=== PATIENT | male | born 1950 | race Caucasian/White ===

== ENCOUNTER → 2018-03-30 06:59 | Outpatient (CLI) | payer OTHER, MEDICARE, SELFPAY ==
[2018-03-30 07:58] LABS: Cholesterol 145 mg/dL (140-199); HDL Cholesterol 41 mg/dL (40-60); LDL Cholesterol Calculated 56 mg/dL (<100); Triglycerides 239 mg/dL (35-150)
== END ==
PROVIDERS: PCP Internal Medicine; Visit Provider Internal Medicine
DX: E78.5 Hyperlipidemia, unspecified (principal)
CPT/HCPCS: 36415; 80061

== ENCOUNTER 2019-02-04 00:24 | Emergency (ER) | payer OTHER, MEDICARE, SELFPAY ==
[2019-02-04 00:30] VITALS: BP 149/82; PULSE 66; RESP 13; O2SAT 99
--- NOTE | 2019-02-04 00:32 | DI.RAD.S_ITS ---
PROCEDURE: XR CHEST 1V INDICATIONS: Chest pain TECHNIQUE: One view of the chest was acquired. COMPARISON: None. FINDINGS: Surgical changes and devices: None. Lungs and pleura: Lungs are clear. No pleural effusions or pneumothorax. Mediastinum: Mediastinal contours appear normal. Heart size is normal. Bones and chest wall: No suspicious bony lesions. Overlying soft tissues appear unremarkable. IMPRESSION: No acute cardiopulmonary disease process. Dictated by: Mari Chou MD, PhD on 02/04/2019 at 8:58 Approved by: Mari Chou MD, PhD on 02/04/2019 at 8:58
--- NOTE | 2019-02-04 00:32 | ED.GENADULT ---
HPI - General Adult General Chief complaint: Chest Pain Stated complaint: CHEST AND JAW PAIN, DIFFICULTY BREATHINHG Time Seen by Provider: 02/04/19 00:31 Source: patient Mode of arrival: ambulatory Limitations: no limitations History of Present Illness HPI narrative: Patient is a 68-year-old male here for evaluation approximately 2 hours of what initially started off as a shortness of breath and then progressed to a left-sided jaw pain and then to chest discomfort. He states that he has had similar pain in the past but this was many years ago. He stated that he has had ?gas? in the past and this felt similar to this. He took some Maalox at home which was not helping his symptoms however he states that on the ride here to the emergency department he was burping quite a bit which seem to improve his symptoms. At the time of my evaluation patient reported that his symptoms had almost completely resolved. He did take aspirin prior to arrival here in the emergency department. States that his symptoms did not get better worse with movement or palpation Related Data Home Medications Medication Instructions Recorded Confirmed aspirin 81 mg PO QDAY #0 08/07/17 multivitamin [Multiple Vitamins] 1 tab PO QDAY #0 08/07/17 ascorbic acid (vitamin C) #0 10/11/17 Previous Rx's Medication Instructions Recorded albuterol sulfate [Ventolin HFA] 2 puff INH QID #1 ea 10/11/17 azithromycin [Zithromax] 250 - 500 mg PO QDAY #6 tab 10/11/17 Allergies Allergy/AdvReac Type Severity Reaction Status Date / Time amoxicillin [AMOXICILLIN] Allergy Unknown Verified 02/04/19 00:35 Review of Systems Constitutional Denies fever(s) Cardiovascular Reports chest pain, Denies rapid heart rate, Denies pedal edema, Denies edema, Denies palpitations and Reports dyspnea Respiratory Denies cough and Reports dyspnea Gastrointestinal Gastrointestinal: Denies belching, Denies nausea and Denies vomiting Musculoskeletal Denies myalgias and Denies arthralgias Integumentary/Breasts Denies rash Endocrine Denies palpitations Hematologic/Lymphatic Denies easy bleeding and Denies easy bruising [facility] Medical History Patient denies medical problems (Acute) Social History Smoking Status: Former smoker Social History Smoking Status: Former smoker Exam Initial Vital Signs Initial Vital Signs: Vital Signs Pulse Rate 66 02/04/19 00:30 Respiratory Rate 13 02/04/19 00:30 Blood Pressure 149/82 H 02/04/19 00:30 Pulse Oximetry 99 02/04/19 00:30 Const General: cooperative, healthy appearing, comfortable, well developed, well groomed and No acute distress Orientation: alert, awake and oriented x3 HENMT Head: normal to inspection and normocephalic Resp Effort & Inspection: normal respiratory effort Auscultation: clear to auscultation bilaterally Cardio Rate: regular rate Rhythm: regular rhythm Pulses: radial pulses present GI Inspection: non-distended Palpation: soft, No firm and No tender Skin Lesions: no lesions Rashes: no rashes Neuro General: alert, awake and oriented x3 Cognition: normal cognition Speech: speech normal Gait: normal gait Motor: muscle tone normal throughout Sensory Exam: no sensory deficits noted Extrem General: normal to inspection, capillary refill normal and No edema Psych Appearance: grossly normal and well kempt Scores GCS [place] coma scale eye opening: Spontaneous [place] coma scale verbal response: Orientated [place] coma scale motor response: Obey commands [place] coma scale total score: 15 HEART Score Heart Score history: Moderately Suspicious Heart Score EKG: Normal Heart Score Age: > or = 65 years old Heart Score risk factors: No known risk factors Heart Score troponin: < or = to normal limit Heart Score Total: 3 Course Orders Ordered: ED Orders 02/04/19 00:32 XR chest 1V Stat EKG-12 Lead Stat 02/04/19 00:40 Basic Metabolic Panel Stat Complete Blood Count AUTO DIFF Stat Partial Thromboplastin Time Stat Prothrombin Time INR Stat Troponin I Stat 02/04/19 02:43 Troponin I Stat Vital Signs - 8 hr 02/04/19 00:30 02/04/19 00:35 02/04/19 02:00 Temperature 98.2 F Pulse Rate 66 68 63 Respiratory Rate 13 18 18 Blood Pressure 162/90 H Blood Pressure [Left Arm] 149/82 H 131/85 Pulse Oximetry 99 95 97 02/04/19 02:30 02/04/19 03:00 Temperature Pulse Rate 63 62 Respiratory Rate 12 14 Blood Pressure Blood Pressure [Left Arm] 126/74 126/69 Pulse Oximetry 96 96 Medical Decision Making Lab Data Lab results reviewed: Yes I reviewed the patient's lab results. Result diagrams: 02/04/19 00:40 02/04/19 00:40 Lab Results 02/04/19 02/04/19 02/04/19 Range/Units 00:40 00:40 00:40 WBC 9.4 (4.5-11.0) X10^3/uL RBC 4.86 (4.5-5.9) X10^6/uL Hgb 14.3 (13.5-17.5) g/dL Hct 42.1 (41-53) % MCV 86.7 (80-100) fL MCH 29.4 (26-34) PG MCHC 33.9 (30-36) % RDW 13.3 (11.6-14.8) % Plt Count 257 (150-400) X10^3/uL Neut % (Auto) 71.1 (50-75) % Lymph % (Auto) 17.7 L (25-40) % [place] % (Auto) 7.9 (3-14) % Eos % (Auto) 3.0 (2-4) % Baso % (Auto) 0.3 (0-2) % Neut # (Auto) 6600 (0230-6401) /uL Lymph # (Auto) 1700 (9352-7722) /uL [place] # (Auto) 700 (0-900) /uL Eos # (Auto) 300 (0-450) /uL Baso # (Auto) 0 (0-100) /uL PT 12.9 H (10.1-12.7) SECONDS INR 1.1 (0.9-1.3) APTT 32 (26.4-36.2) SECONDS Sodium 140 (137-145) mmol/L Potassium 4.2 (3.4-5.1) mmol/L Chloride 103 (98-107) mmol/L Carbon Dioxide 30 (22-32) mmol/L BUN 23 H (9-20) mg/dL Creatinine 0.90 (0.66-1.25) mg/dL Estimated GFR > 60.0 (>60) mL/min BUN/Creatinine Ratio 25.6 H (6-22) Glucose 106 (80-110) mg/dL Calcium 9.1 (8.4-10.2) mg/dL Troponin I < 0.012 (0.01-0.034) ng/mL 02/04/19 Range/Units 02:43 WBC (4.5-11.0) X10^3/uL RBC (4.5-5.9) X10^6/uL Hgb (13.5-17.5) g/dL Hct (41-53) % MCV (80-100) fL MCH (26-34) PG MCHC (30-36) % RDW (11.6-14.8) % Plt Count (150-400) X10^3/uL Neut % (Auto) (50-75) % Lymph % (Auto) (25-40) % [place] % (Auto) (3-14) % Eos % (Auto) (2-4) % Baso % (Auto) (0-2) % Neut # (Auto) (4080-4434) /uL Lymph # (Auto) (9450-1201) /uL [place] # (Auto) (0-900) /uL Eos # (Auto) (0-450) /uL Baso # (Auto) (0-100) /uL PT (10.1-12.7) SECONDS INR (0.9-1.3) APTT (26.4-36.2) SECONDS Sodium (137-145) mmol/L Potassium (3.4-5.1) mmol/L Chloride (98-107) mmol/L Carbon Dioxide (22-32) mmol/L BUN (9-20) mg/dL Creatinine (0.66-1.25) mg/dL Estimated GFR (>60) mL/min BUN/Creatinine Ratio (6-22) Glucose (80-110) mg/dL Calcium (8.4-10.2) mg/dL Troponin I < 0.012 (0.01-0.034) ng/mL Imaging Data Chest x-ray: Attestation: I personally reviewed and interpreted this imaging study as follows: My impression: Normal size heart No focal consolidations Fairly large gastric bubble ECG Data Attestation: I personally reviewed and interpreted this ECG as follows: Prior ECG tracings: not available for review Interpretation: Sinus rhythm Ventricular rate is 67 Normal axis Normal QRS Normal QTC No ST T wave changes MDM Narrative Medical decision making narrative: Patient symptom-free since being here in the emergency department. He did take an aspirin prior to arrival. He has a heart score of 3. 2-troponins. Normal EKG. He did report resolution of his symptoms as he was burping on his way here to the emergency department. He does have fairly large gastric bubble on the chest x-ray which fits this presentation. Hold on further workup for now. Informed patient he did need to talk with his primary doctor about referral to have a stress test. He was given return precautions. He expressed understanding and agreement with plan Discharge Plan Departure Patient Disposition: Home Clinical Impression: Atypical chest pain Instructions: DI for Atypical Chest Pain Activity Restrictions/Additional Instructions: I do recommend that you contact your primary care doctor to discuss the indications for stress testing. Return to the emergency department for any new or worsening symptoms Prescriptions: No Action aspirin 81 MG tablet,chewable 81 mg PO QDAY Qty: 0 RF: 0 multivitamin [Multiple Vitamins] 1 EACH tablet 1 tab PO QDAY Qty: 0 RF: 0 ascorbic acid (vitamin C) 500 MG tablet Qty: 0 RF: 0 azithromycin [Zithromax] 250 MG tablet 250 - 500 mg PO QDAY Qty: 6 RF: 0 albuterol sulfate [Ventolin HFA] 90 MCG/PUFF HFA aerosol inhaler 2 puff INH QID Qty: 1 RF: 0 Referrals: Kenton Carson MD [Primary Care Provider] -
[2019-02-04 00:35] VITALS: BP 162/90; PULSE 68; RESP 18; TEMP 36.8; O2SAT 95; BMI 31.0
[2019-02-04 00:51] LABS: Add Manual Diff / Slide Review NO; Basophils Absolute Auto 0 /uL (0-100); Basophils Percent Auto 0.3 % (0-2); Eosinophils Absolute Auto 300 /uL (0-450); Hematocrit 42.1 % (41-53); Hemoglobin 14.3 g/dL (13.5-17.5); Lymphocytes Absolute Auto 1700 /uL (1100-4500); Lymphocytes Percent Auto 17.7 % (25-40); Mean Corpuscular HGB Conc 33.9 % (30-36); Mean Corpuscular Hemoglobin 29.4 PG (26-34); Mean Corpuscular Volume 86.7 fL (80-100); Monocytes Absolute Auto 700 /uL (0-900); Monocytes Percent Auto 7.9 % (3-14); Neutrophils Absolute Auto 6600 /uL (1500-7000); Neutrophils Percent Auto 71.1 % (50-75); Platelet Count 257 X10^3/uL (150-400); Red Blood Cell Count 4.86 X10^6/uL (4.5-5.9); Red Cell Distribution Width 13.3 % (11.6-14.8); White Blood Cell Count 9.4 X10^3/uL (4.5-11.0)
[2019-02-04 00:52] LABS: INR 1.1 (0.9-1.3); Prothrombin Time 12.9 SECONDS (10.1-12.7)
[2019-02-04 00:54] LABS: PTT Partial Thromboplastin Tim 32 SECONDS (26.4-36.2)
[2019-02-04 00:56] LABS: BUN Creatinine Ratio 25.6 (6-22); Blood Urea Nitrogen 23 mg/dL (9-20); Calcium 9.1 mg/dL (8.4-10.2); Carbon Dioxide 30 mmol/L (22-32); Chloride 103 mmol/L (98-107); Estimated Glomerular Filt Rate > 60.0 mL/min (>60); Glucose 106 mg/dL (80-110); HEMOLYSIS < 15 (0-50); Potassium 4.2 mmol/L (3.4-5.1); Sodium 140 mmol/L (137-145)
[2019-02-04 01:08] LABS: Troponin I < 0.012 ng/mL (0.01-0.034)
[2019-02-04 02:00] VITALS: BP 131/85; PULSE 63; RESP 18; O2SAT 97
[2019-02-04 02:30] VITALS: BP 126/74; PULSE 63; RESP 12; O2SAT 96
[2019-02-04 03:00] VITALS: BP 126/69; PULSE 62; RESP 14; O2SAT 96
[2019-02-04 03:13] LABS: Troponin I < 0.012 ng/mL (0.01-0.034)
== END 2019-02-04 03:31 | disposition home or self-care (01) ==
PROVIDERS: Emergency Provider Emergency Medicine; PCP Internal Medicine
DX: R07.89 Other chest pain (principal); R06.02 Shortness of breath; R68.84 Jaw pain
CPT/HCPCS: 36415; 36591; 71045; 80048; 84484; 85025; 85610; 85730; 93005; 93010; 99283; 99285

== ENCOUNTER → 2020-10-09 08:54 | Outpatient (CLI) | payer MEDICARE, SELFPAY ==
[2020-10-09] MEDS: COVID-19 VACC(MODERNA-1)/PF 100 MCG/0.5 ML VIAL IM (09:03)
== END ==
PROVIDERS: PCP Internal Medicine; Visit Provider Internal Medicine
DX: Z23 Encounter for immunization (principal)
CPT/HCPCS: 0011A; 91301

== ENCOUNTER → 2020-11-20 12:45 | Outpatient (CLI) | payer MEDICARE, SELFPAY ==
[2020-11-20] MEDS: COVID-19 VACC #2, MRNA(MOD) 100 MCG/0.5 ML VIAL IM (12:51)
== END ==
PROVIDERS: PCP Internal Medicine; Visit Provider Internal Medicine
DX: Z23 Encounter for immunization (principal)
CPT/HCPCS: 0012A; 91301

== ENCOUNTER → 2021-08-13 09:13 | Outpatient (CLI) | payer MEDICARE, SELFPAY ==
[2021-08-13] MEDS: COVID-19 VACC #3, MRNA(MOD) 50 MCG/0.25 ML VIAL IM (09:19)
== END ==
PROVIDERS: PCP Internal Medicine; Visit Provider Internal Medicine
DX: Z23 Encounter for immunization (principal)
CPT/HCPCS: 0013A; 91301

== ENCOUNTER → 2021-11-25 07:12 | Outpatient (CLI) | payer MEDICARE, SELFPAY ==
[2021-11-25 08:20] LABS: Alanine Aminotransferase 39 IU/L (<50); Albumin 4.7 g/dL (3.5-5.0); Albumin Globulin Ratio 1.6 (1.0-2.8); Alkaline Phosphatase 36 U/L (38-126); Aspartate Aminotransferase 39 IU/L (17-59); Bilirubin Total 0.7 mg/dL (0.2-1.3); Blood Urea Nitrogen 20 mg/dL (9-20); Calcium 9.1 mg/dL (8.4-10.2); Carbon Dioxide 29 mmol/L (22-32); Chloride 106 mmol/L (98-107); Cholesterol 208 mg/dL (140-199); Estimated Glomerular Filt Rate > 60.0 mL/min (>60); Globulin 2.9 g/dL (1.7-4.1); Glucose 106 mg/dL (80-110); HDL Cholesterol 42 mg/dL (40-60); HEMOLYSIS < 15 (0-50); LDL Cholesterol Calculated 143 mg/dL (<100); Potassium 4.4 mmol/L (3.4-5.1); Sodium 141 mmol/L (137-145); Total Protein 7.6 g/dL (6.3-8.2); Triglycerides 117 mg/dL (35-150)
[2021-11-25 08:47] LABS: Creatinine Urine Random 150.5 mg/dL
[2021-11-25 08:52] LABS: Microalbumi Creatinin Ratio Ur 15.9 ug/mg CR (<30); Microalbumin Urine Random 2.4 mg/dL (0-1.6)
[2021-11-25 09:11] LABS: Add Manual Diff / Slide Review NO; Basophils Absolute Auto 0 /uL (0-100); Basophils Percent Auto 0.4 % (0-2); Eosinophils Absolute Auto 100 /uL (0-450); Eosinophils Percent Auto 2.3 % (2-4); Hematocrit 44.6 % (41-53); Hemoglobin 15.3 g/dL (13.5-17.5); Lymphocytes Absolute Auto 1400 /uL (1100-4500); Lymphocytes Percent Auto 23.4 % (25-40); Mean Corpuscular HGB Conc 34.2 % (30-36); Mean Corpuscular Hemoglobin 29.9 PG (26-34); Mean Corpuscular Volume 87.3 fL (80-100); Monocytes Absolute Auto 500 /uL (0-900); Monocytes Percent Auto 8.6 % (3-14); Neutrophils Absolute Auto 3900 /uL (1500-7000); Neutrophils Percent Auto 65.3 % (50-75); Platelet Count 257 X10^3/uL (150-400); Red Blood Cell Count 5.11 X10^6/uL (4.5-5.9); Red Cell Distribution Width 13.3 % (11.6-14.8); White Blood Cell Count 5.9 X10^3/uL (4.5-11.0)
== END ==
PROVIDERS: PCP Family Medicine; Referring Provider Family Medicine; Visit Provider Family Medicine
DX: E78.5 Hyperlipidemia, unspecified (principal); K21.9 Gastro-esophageal reflux disease without esophagitis; R03.0 Elevated blood-pressure reading, without diagnosis of hypertension; Z68.34 Body mass index [BMI] 34.0-34.9, adult
CPT/HCPCS: 36415; 80053; 80061; 82043; 82570; 85025

== ENCOUNTER 2022-04-15 20:03 | Emergency (ER) | payer MEDICARE, SELFPAY ==
[2022-04-15] VITALS (9 sets, daily range): BP systolic 137–220; BP diastolic 72–102; PULSE 61–80; RESP 19–32; TEMP 36.7; O2SAT 95–97; BMI 34.0
--- NOTE | 2022-04-15 20:17 | ED_ITS ---
HPI - URI/Sore Throat General Chief Complaint: Upper Respiratory Symptoms Stated Complaint: SOB chest pain gas cough fever Time Seen by Provider: 04/15/22 20:17 Source: patient Mode of arrival: Ambulatory Limitations: no limitations History of Present Illness HPI Narrative: This is a 71-year-old male with no daily prescription medications who states he had COVID like symptoms starting about 6 days ago with fevers, nasal and chest congestion, cough, feeling fatigued and myalgias. He states that last about 3 days has been slowly improving but he started to develop a sore throat and feels a little bit swollen in his throat. He states today he started coughing and just could not stopped he felt like it was involuntary. States he has been able to swallow his saliva and secretions without issues but states he is having a hard time keeping up with any congestion. He states he is had a couple episodes in the past for this happened but it seems a little bit more. He had temp of 99? F today at home. He has not had any nausea or vomiting. He has not had any chest pain or shortness of breath. No syncope. No diarrhea constipation. Patient denies any urinary symptoms. Patient tested positive for COVID he did not swab himself. But they had concurrent symptoms. Denies any prescription medications. Patient denies drug allergies but has amoxicillin stated in his EMR. No tobacco, occasional alcohol, no illicit. Related Data Home Medications Medication Instructions Recorded Confirmed multivitamin (Multiple Vitamins 1 tab PO QDAY ##0 08/07/17 12/27/21 tablet) ascorbic acid (vitamin C) 500 mg ##0 10/11/17 12/27/21 tablet Previous Rx's Medication Instructions Recorded pantoprazole 40 mg tablet,delayed 40 mg PO DAILY #60 tabs 11/16/21 release prednisone 20 mg tablet 40 mg PO DAILY #6 tabs 04/15/22 Allergies Allergy/AdvReac Type Severity Reaction Status Date / Time amoxicillin [AMOXICILLIN] Allergy Unknown Verified 12/27/21 16:15 Review of Systems Review of Systems ROS Unobtainable: All systems reviewed & are unremarkable except as noted in HPI and below Patient History Medical History Gastroparesis (~2018) Hearing loss (~1959) Hyperlipidemia Patient denies medical problems Surgical History Anesthesia History of brain surgery (~07/06/71) History of hernia repair (~09/1999) Family History Grandfather History of heart disease Grandmother Colon cancer Grandmother Pneumonia Social History Smoking Status: Former smoker Smoking Status: Former smoker alcohol intake frequency: holidays/special occasions only Substance Use Type: does not use Exam Narrative Exam Narrative: GEN: well nourished, well appearing male, alert and oriented x 3, patient appears to be in mild distress. HEENT: Atraumatic, pupils are equal round reactive to light, extraocular movements are intact, nares are clear Throat is clear without any exudates, positive for erythema, no tonsillar enlargement or uvular deviation, patient has hoarseness. No stridor. No difficulty handling secretions. Lying back in the bed without issue. No swelling of the neck, lips or tongue. HEART: Regular rate and rhythm without murmur, clicks, rubs. LUNGS:Lungs clear to auscultation, no wheezes, rales, crackles, chest moves symmetrically ABD:bowel sounds normal, soft, non-tender, no guarding, rebound, rigidity, no masses noted, no hepatosplenomegaly MSCL: Non-tender, no muscle atrophy, muscles strength 5/5 upper and lower extremities, full range of motion, normal gait NEURO:CN 2-12 intact, sensation normal SKIN: No rash, erythema or other skin changes. Initial Vital Signs Initial Vital Signs: Vital Signs Temperature 98.1 F 04/15/22 20:08 Pulse Rate 77 04/15/22 20:08 Respiratory Rate 21 04/15/22 20:08 Blood Pressure 220/102 H 04/15/22 20:08 Pulse Oximetry 96 04/15/22 20:08 Oxygen Delivery Method 04/15/22 20:08 Course Orders Ordered: ED Orders 04/15/22 20:24 Chest [XR chest 1V] Stat XR soft tissue neck Stat Blood Culture Stat 04/15/22 20:26 Throat Culture Stat 04/15/22 20:29 COVID19 -Nasal RAPID/Pre-Proc Stat 04/15/22 20:35 CBC Auto Diff [Complete Blood Count AUTO DIFF] Stat CMP [Comprehensive Metabolic Panel] Stat Lactate (Lactic Acid) Stat Lipase Stat Procalcitonin Stat Discontinued Medications Sodium Chloride (Normal Saline 0.9%) 1,000 mls @ 1,000 mls/hr IV BOLUS ONE Stop: 04/15/22 21:23 Last Infusion: 04/15/22 21:59 Dose: 0 mls/hr Documented By: Admin: 04/15/22 20:31 Dose: 1,000 mls/hr Documented By: EB Methylprednisolone (Methylprednisolone 125 Mg/2 Ml Vial) 125 mg IV NOW ONE Stop: 04/15/22 20:25 Last Admin: 04/15/22 20:31 Dose: 125 mg Documented By: EB Consultations Consultation #1: Dr. Quiroga for general surgery. Accepts under Dr. Ramsay. Vital Signs Vital signs: Vital Signs - 8 hr 04/15/22 20:08 04/15/22 20:08 04/15/22 20:10 Temperature 98.1 F Pulse Rate 77 79 Respiratory Rate 21 Blood Pressure 220/102 H 220/102 H Pulse Oximetry 96 Oxygen Delivery Method Room Air 04/15/22 20:10 04/15/22 20:15 04/15/22 20:15 Temperature Pulse Rate 80 74 Respiratory Rate 19 19 Blood Pressure 181/86 H Pulse Oximetry 96 97 Oxygen Delivery Method 04/15/22 20:30 04/15/22 20:31 04/15/22 20:31 Temperature Pulse Rate 71 72 Respiratory Rate 19 27 H Blood Pressure 161/72 H Pulse Oximetry 96 95 Oxygen Delivery Method 04/15/22 21:00 04/15/22 21:30 04/15/22 21:39 Temperature Pulse Rate 65 70 Respiratory Rate 21 32 H Blood Pressure 147/76 H Pulse Oximetry 97 95 Oxygen Delivery Method 04/15/22 21:39 04/15/22 22:00 04/15/22 22:00 Temperature Pulse Rate 64 61 Respiratory Rate 24 23 Blood Pressure 137/80 Pulse Oximetry 95 95 Oxygen Delivery Method MDM - URI/Sore Throat Lab Data Result diagrams: 04/15/22 20:35 04/15/22 20:35 Labs: Lab Results 04/15/22 04/15/22 04/15/22 Range/Units 20:29 20:35 20:35 WBC 5.1 (4.5-11.0) X10^3/uL RBC 4.85 (4.5-5.9) X10^6/uL Hgb 14.3 (13.5-17.5) g/dL Hct 41.5 (41-53) % MCV 85.6 (80-100) fL MCH 29.5 (26-34) PG MCHC 34.5 (30-36) % RDW 13.1 (11.6-14.8) % Plt Count 215 (150-400) X10^3/uL Neut % (Auto) 60.4 (50-75) % Lymph % (Auto) 26.4 (25-40) % [place] % (Auto) 9.7 (3-14) % Eos % (Auto) 2.9 (2-4) % Baso % (Auto) 0.6 (0-2) % Neut # (Auto) 3100 (0868-4773) /uL Lymph # (Auto) 1300 (6515-0993) /uL [place] # (Auto) 500 (0-900) /uL Eos # (Auto) 100 (0-450) /uL Baso # (Auto) 0 (0-100) /uL Sodium 139 (137-145) mmol/L Potassium 4.0 (3.4-5.1) mmol/L Chloride 102 (98-107) mmol/L Carbon Dioxide 27 (22-32) mmol/L BUN 20 (9-20) mg/dL Creatinine 0.95 (0.66-1.25) mg/dL Estimated GFR > 60 (>60) mL/min BUN/Creatinine Ratio 21.1 (6-22) Glucose 113 H (80-110) mg/dL Lactate (0.7-2.1) mmol/L Calcium 8.7 (8.4-10.2) mg/dL Total Bilirubin 0.3 (0.2-1.3) mg/dL AST 37 (17-59) IU/L ALT 56 H (<50) IU/L Alkaline Phosphatase 45 (38-126) U/L Total Protein 7.1 (6.3-8.2) g/dL Albumin 4.3 (3.5-5.0) g/dL Globulin 2.8 (1.7-4.1) g/dL Albumin/Globulin Ratio 1.5 (1.0-2.8) Lipase 49 (23-300) U/L Procalcitonin 0.07 (<0.5) ng/mL SARS-CoV-2 (PCR) Positive H (Negative) 04/15/22 Range/Units 20:35 WBC (4.5-11.0) X10^3/uL RBC (4.5-5.9) X10^6/uL Hgb (13.5-17.5) g/dL Hct (41-53) % MCV (80-100) fL MCH (26-34) PG MCHC (30-36) % RDW (11.6-14.8) % Plt Count (150-400) X10^3/uL Neut % (Auto) (50-75) % Lymph % (Auto) (25-40) % [place] % (Auto) (3-14) % Eos % (Auto) (2-4) % Baso % (Auto) (0-2) % Neut # (Auto) (4041-5954) /uL Lymph # (Auto) (9440-3193) /uL [place] # (Auto) (0-900) /uL Eos # (Auto) (0-450) /uL Baso # (Auto) (0-100) /uL Sodium (137-145) mmol/L Potassium (3.4-5.1) mmol/L Chloride (98-107) mmol/L Carbon Dioxide (22-32) mmol/L BUN (9-20) mg/dL Creatinine (0.66-1.25) mg/dL Estimated GFR (>60) mL/min BUN/Creatinine Ratio (6-22) Glucose (80-110) mg/dL Lactate 1.0 (0.7-2.1) mmol/L Calcium (8.4-10.2) mg/dL Total Bilirubin (0.2-1.3) mg/dL AST (17-59) IU/L ALT (<50) IU/L Alkaline Phosphatase (38-126) U/L Total Protein (6.3-8.2) g/dL Albumin (3.5-5.0) g/dL Globulin (1.7-4.1) g/dL Albumin/Globulin Ratio (1.0-2.8) Lipase (23-300) U/L Procalcitonin (<0.5) ng/mL SARS-CoV-2 (PCR) (Negative) Point of Care Testing Rapid Strep A Negative Imaging Data soft tissue neck xray: Radiologist's Impression: [address] [address] XRay Report Signed Patient: Harman Woods MR#: [id number] : 1950 Acct:[id number] Age/Sex: 71 / M Date of Service: 04/15/22 Loc: ED Accession Number: [id number] ?? Procedure: XR soft tissue neck Ordering Provider: Kelley Valentin D.O. PROCEDURE:? XR SOFT TISSUE NECK ? INDICATIONS:? throat feels swollen, suspected covid 6 days ago ? TECHNIQUE:? 2 views of the neck were acquired.? ? COMPARISON:? None. ? FINDINGS:? ? Airway:? The airway appears patent.? ? Soft tissues:? Prevertebral soft tissues are normal in thickness.? The epiglottis and aryepiglottic folds appear within normal limits.? No soft tissue gas.? ? Bones:? No suspicious bony lesions.? Visualized cervical spine is normally aligned.? ? IMPRESSION:? ? 1. No definite abnormal soft tissue thickening in the neck. ? ? Dictated by: Adonis Vance M.D. on 04/15/2022 at 21:42 ? ? Approved by: Adonis Vance M.D. on 04/15/2022 at 21:43?? Chest x-ray: Radiologist's Impression: [address] [address] XRay Report Signed Patient: Harman Woods MR#: [id number] : 1950 Acct:[id number] Age/Sex: 71 / M Date of Service: 04/15/22 Loc: ED Accession Number: [id number] ?? Procedure: XR chest 1V Ordering Provider: Kelley Valentin D.O. PROCEDURE:? XR CHEST 1V ? INDICATIONS:? suspected covid 6 days ago. ? TECHNIQUE:? One view of the chest was acquired.? ? COMPARISON:? [facility], , XR CHEST 1V, 02/04/2019, 0:47. ? FINDINGS:? ? Surgical changes and devices:? None.? ? Lungs and pleura:? Lungs are clear.? No pleural effusions or pneumothorax.? ? Mediastinum:? Mediastinal contours appear normal.? Heart size is normal.? ? Bones and chest wall:? No suspicious bony lesions.? Overlying soft tissues appear unremarkable.? ? IMPRESSION:? ? 1.? No acute cardiopulmonary disease. ? ? ? Dictated by: Adonis Vance M.D. on 04/15/2022 at 21:42 ? ? Approved by: Adonis Vance M.D. on 04/15/2022 at 21:42?? MDM Narrative Medical decision making narrative: 71-year-old male assumed and now confirmed COVID infection who has complaint of feeling sort of a tightness in his throat but also a lot of postnasal drip. Patient is hoarse but does not have any stridor or other red flag symptoms. Soft tissue neck and chest x-ray are negative, labs are otherwise reassuring. Patient was given fluids dose of Solu-Medrol which was somewhat helpful but patient still has mild cough that sounds almost barky or croup-like. Plan to treat patient with oral steroid and return precautions. Discharge Plan Departure Patient Disposition: Home Clinical Impression: COVID-19 virus infection Instructions: DI for COVID-19 (Suspected or Confirmed ) Activity Restrictions/Additional Instructions: Follow-up or return to the ER if you are having worsening symptoms. You are officially positive for COVID infection today. You can use [id number] cough medications as needed. I would recommend a short course of steroid to assist with any swelling in your airway. You can also use cool mist such as a humidifier, or cool mist from your shower. Prescription sent to [facility]. Please return for worsening symptoms, stridor, high-pitched wheezing, muffled voice, persistent vomiting, increasing difficulty with breathing, chest pain, shortness of breath, passing out or other new or concerning symptoms. Prescriptions: New prednisone 20 mg tablet 40 mg PO DAILY Qty: 6 0RF No Action multivitamin [Multiple Vitamins] 1 EACH tablet 1 tab PO QDAY Qty: 0 ascorbic acid (vitamin C) 500 MG tablet Qty: 0 pantoprazole 40 mg tablet,delayed release (DR/EC) 40 mg PO DAILY Qty: 60 0RF Referrals: Toni Morin MD [Primary Care Provider] - Visit Report Forms: Patient Portal/API
--- NOTE | 2022-04-15 20:24 | DI.RAD.S_ITS ---
PROCEDURE: XR CHEST 1V INDICATIONS: suspected covid 6 days ago. TECHNIQUE: One view of the chest was acquired. COMPARISON: [facility], CR, XR CHEST 1V, 02/04/2019, 0:47. FINDINGS: Surgical changes and devices: None. Lungs and pleura: Lungs are clear. No pleural effusions or pneumothorax. Mediastinum: Mediastinal contours appear normal. Heart size is normal. Bones and chest wall: No suspicious bony lesions. Overlying soft tissues appear unremarkable. IMPRESSION: 1. No acute cardiopulmonary disease. Dictated by: Adonis Vance M.D. on 04/15/2022 at 21:42 Approved by: Adonis Vance M.D. on 04/15/2022 at 21:42
--- NOTE | 2022-04-15 20:24 | DI.RAD.S_ITS ---
PROCEDURE: XR SOFT TISSUE NECK INDICATIONS: throat feels swollen, suspected covid 6 days ago TECHNIQUE: 2 views of the neck were acquired. COMPARISON: None. FINDINGS: Airway: The airway appears patent. Soft tissues: Prevertebral soft tissues are normal in thickness. The epiglottis and aryepiglottic folds appear within normal limits. No soft tissue gas. Bones: No suspicious bony lesions. Visualized cervical spine is normally aligned. IMPRESSION: 1. No definite abnormal soft tissue thickening in the neck. Dictated by: Adonis Vance M.D. on 04/15/2022 at 21:42 Approved by: Adonis Vance M.D. on 04/15/2022 at 21:43
[2022-04-15] MEDS: SODIUM CHLORIDE 0.9% 1,000 ML 1000 ML IV (20:31)
[2022-04-15] MEDS: methylPREDNISolone 125 MG/2 ML VIAL IV (20:31)
[2022-04-15 20:44] LABS: COVID19 -Nasal RAPID POSITIVE (Negative)
[2022-04-15 20:49] LABS: Add Manual Diff / Slide Review NO; Basophils Absolute Auto 0 /uL (0-100); Basophils Percent Auto 0.6 % (0-2); Eosinophils Absolute Auto 100 /uL (0-450); Eosinophils Percent Auto 2.9 % (2-4); Hematocrit 41.5 % (41-53); Hemoglobin 14.3 g/dL (13.5-17.5); Lymphocytes Absolute Auto 1300 /uL (1100-4500); Lymphocytes Percent Auto 26.4 % (25-40); Mean Corpuscular HGB Conc 34.5 % (30-36); Mean Corpuscular Hemoglobin 29.5 PG (26-34); Mean Corpuscular Volume 85.6 fL (80-100); Monocytes Absolute Auto 500 /uL (0-900); Monocytes Percent Auto 9.7 % (3-14); Neutrophils Absolute Auto 3100 /uL (1500-7000); Neutrophils Percent Auto 60.4 % (50-75); Platelet Count 215 X10^3/uL (150-400); Red Blood Cell Count 4.85 X10^6/uL (4.5-5.9); Red Cell Distribution Width 13.1 % (11.6-14.8); White Blood Cell Count 5.1 X10^3/uL (4.5-11.0)
[2022-04-15 21:00] LABS: Alanine Aminotransferase 56 IU/L (<50); Albumin 4.3 g/dL (3.5-5.0); Albumin Globulin Ratio 1.5 (1.0-2.8); Alkaline Phosphatase 45 U/L (38-126); Aspartate Aminotransferase 37 IU/L (17-59); BUN Creatinine Ratio 21.1 (6-22); Bilirubin Total 0.3 mg/dL (0.2-1.3); Blood Urea Nitrogen 20 mg/dL (9-20); Calcium 8.7 mg/dL (8.4-10.2); Carbon Dioxide 27 mmol/L (22-32); Chloride 102 mmol/L (98-107); Estimated Glomerular Filt Rate > 60 mL/min (>60); Globulin 2.8 g/dL (1.7-4.1); Glucose 113 mg/dL (80-110); HEMOLYSIS < 15 (0-50); Lipase 49 U/L (23-300); Sodium 139 mmol/L (137-145); Total Protein 7.1 g/dL (6.3-8.2)
[2022-04-15 21:17] LABS: Procalcitonin 0.07 ng/mL (<0.5)
== END 2022-04-15 22:32 | disposition home or self-care (01) ==
PROVIDERS: Emergency Provider Emergency Medicine; PCP Family Medicine
DX: U07.1 COVID-19 (principal)
CPT/HCPCS: 70360; 71045; 80053; 83605; 83690; 84145; 85025; 87040; 87070; 87635; 87880; 96361; 96374; 99283; 99284; C9803; J2930

== ENCOUNTER → 2022-05-31 07:03 | Outpatient (CLI) | payer MEDICARE, SELFPAY | PROVIDERS: PCP Family Medicine; Visit Provider Registered Nurse | DX: R30.0 Dysuria (principal) | CPT/HCPCS: 87086 ==

== ENCOUNTER → 2022-06-07 07:23 | Outpatient (CLI) | payer MEDICARE, SELFPAY ==
[2022-06-07 08:48] LABS: Cholesterol 213 mg/dL (140-199); HDL Cholesterol 38 mg/dL (40-60); LDL Cholesterol Calculated 144 mg/dL (<100); Triglycerides 156 mg/dL (35-150)
[2022-06-07 09:18] LABS: Prostate Specific Antigen Scrn 2.07 ng/mL (0.1-4.0)
== END ==
PROVIDERS: PCP Family Medicine; Referring Provider Family Medicine; Visit Provider Family Medicine
DX: E78.5 Hyperlipidemia, unspecified (principal); Z12.5 Encounter for screening for malignant neoplasm of prostate; K31.84 Gastroparesis
CPT/HCPCS: 36415; 80061; G0103

== ENCOUNTER → 2022-09-27 12:17 | Outpatient (CLI) | payer MEDICARE, SELFPAY ==
[2022-09-27 14:04] LABS: BUN Creatinine Ratio 24.4 (6-22); Blood Urea Nitrogen 19 mg/dL (9-20); Calcium 9.1 mg/dL (8.4-10.2); Carbon Dioxide 27 mmol/L (22-32); Chloride 103 mmol/L (98-107); Estimated Glomerular Filt Rate > 60 mL/min (>60); Glucose 96 mg/dL (80-110); HEMOLYSIS 17 (0-50); Potassium 4.6 mmol/L (3.4-5.1); Sodium 138 mmol/L (137-145)
== END ==
PROVIDERS: PCP Family Medicine; Referring Provider Urology; Visit Provider Urology
DX: N41.0 Acute prostatitis (principal); N39.41 Urge incontinence; R31.0 Gross hematuria; R39.9 Unspecified symptoms and signs involving the genitourinary system; R39.11 Hesitancy of micturition; R35.0 Frequency of micturition
CPT/HCPCS: 36415; 51798; 80048; 81002; 99214

== ENCOUNTER → 2022-10-01 09:27 | Outpatient (CLI) | payer MEDICARE, SELFPAY ==
--- NOTE | 2022-10-01 09:30 | DI.CT.S_ITS ---
PROCEDURE: CT ABDOMEN PELVIS WO/W CON INDICATIONS: Gross hematuria TECHNIQUE: 46Optional 5 mm thick noncontrast images acquired from the diaphragm to the symphysis pubis. After the administration of intravenous contrast, 5 mm thick images acquired from the diaphragm to the symphysis pubis after a 10-minute delay. 2 mm thick coronal and sagittal reformats were then performed of the kidneys and ureters. For radiation dose reduction, the following was used: automated exposure control, adjustment of mA and/or kV according to patient size. COMPARISON: None. FINDINGS: Image quality: Excellent. Lung bases: Lung bases are clear. Heart size is normal. Small posterior right diaphragmatic hernia contains fat measuring 3.5 cm Urinary system: Both kidneys are normal in size, without hydronephrosis or nephrolithiasis on pre-contrast images. No perinephric fat stranding. There is normal bilateral renal enhancement. Renal calyces appear normal in morphology when filled with contrast. Bilateral simple renal cysts measure up to 1.4 cm on the right. Opacified portions of both ureters demonstrate normal caliber. Bladder contains in multiple rounded calcifications in layering dependently on the bladder floor. Prostate is slightly enlarged measuring 5.1 by 4.0 cm Other solid organs: Liver is normal in size and enhancement. Gallbladder unremarkable . Biliary system is non dilated. Pancreas enhances normally. Spleen is normal in size and enhancement. No adrenal nodules. Peritoneum and bowel: Bowel loops demonstrate normal wall thickness and caliber. No free fluid or air. Nodes and vessels: No retroperitoneal or mesenteric adenopathy by size criteria. Aorta and inferior vena cava are normal in size. Abdominal wall: No ventral hernias. Pelvis: No pathologic free pelvic fluid. No inguinal hernias or adenopathy. Bones: No suspicious bony lesions. No vertebral body compression fractures. Bilateral L4 pars defects associated with grade 2 anterior spondylolisthesis at L4-5 IMPRESSION: Multiple small rounded bladder calculi without hydronephrosis. 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 on 10/01/2022 at 15:44
== END ==
PROVIDERS: PCP Family Medicine; Referring Provider Urology; Visit Provider Urology
DX: R31.0 Gross hematuria (principal); N21.0 Calculus in bladder; N40.0 Benign prostatic hyperplasia without lower urinary tract symptoms; M43.16 Spondylolisthesis, lumbar region
CPT/HCPCS: 74178; Q9967

== ENCOUNTER 2022-11-15 11:48 | Day surgery (SDC) | payer MEDICARE, SELFPAY ==
[2022-11-11 12:47] VITALS: BMI 35.2
[2022-11-15 12:17] VITALS: BP 148/90; PULSE 72; RESP 16; TEMP 36.7; O2SAT 98; BMI 35.2
--- NOTE | 2022-11-15 12:23 | PM.PREOP ---
Pre-operative Note COVID-19 COVID-19 status: Not tested Criteria for continued procedure: Delay expected to result in less-positive ultimate med/surg outcome and Non-surgical alternatives not available or appropriate per current SOC Interval Note History & Physical reviewed/Exam performed by Physician: Yes Changes to H&P: No
[2022-11-15] MEDS: LACTATED RINGERS 1,000 ML 42 ML IV (12:31)
[2022-11-15] MEDS: CIPROFLOXACIN 400 MG/200 ML PIGGYBACK 200 MG IV (12:45)
--- NOTE | 2022-11-15 13:06 | SUR.OPER ---
Lithotomy on padded OR bed, head on pillow, arms secured on padded arm boards at <90 degrees abduction. Legs secured in padded yellow fins stirrups.
--- NOTE | 2022-11-15 14:14 | PM.OP.1 ---
Procedure & Clinicians Procedure: Photo vaporization/laser enucleation of prostate, cystolitholapaxy/evacuation of bladder calculi. Same procedure as scheduled: Yes Indications: This 72-year-old gentleman was found to have profound bladder outlet obstruction than it cystoscopy was found to have an obstructing prostate with a large median lobe as well as innumerable bladder calculi most appearing to be under 1/2 cm. He presents at this time for photo vaporization/laser enucleation of prostate and treatment of his bladder calculi. Surgeon: Isiah Coleman Click Yes if Unassisted: Yes Anesthesia Type: General Operative Notes Findings: Findings: Urethral meatus is normal urethra is normal along its length with normal mucosa. The sphincter as well coapted the prostate exhibits trilobar obstruction with a large median lobe and normal mucosa. Within the bladder there are innumerable yellow calculi the largest of which is perhaps a 0.5 cm. The ureteral orifices after the stones were evacuated were found to be in normal position with care efflux at the end of the procedure they were intact and had again clear efflux with no abnormality otherwise in the bladder there were severe trabeculation cellules at the end of the procedure there were no other stones left within the bladder. The patient received a total laser time of 19 minutes 12 seconds and total laser energy of [id number] joules. Patient had a [address] in place with 14 cc in the balloon. Closure Type: not applicable Specimen(s): other (Bladder calculi for compositional analysis) Prosthetic devices, grafts, tissues, transplants, or devices: 24 Italian, 5 cc, 2 way Peralta catheter with 14 cc in the balloon Applied: catheter ([address] with 14 cc in the balloon left in the bladder.) Estimated Blood Loss (mL): 5 Blood products transfused: none Procedure in detail: Procedure in detail: After informed consent was obtained, the patient was identified and brought to the operating room where he was placed in a supine position on the table. Once on the table anesthesia was induced and maintained. Showing an adequate level of anesthesia the patient was transferred to the lithotomy position where he was prepped, draped, prepared for Transurethral procedure. After prepping, draping, ensuring an adequate level of anesthesia and time-out the laser resectoscope was passed through the urethra prostate into the bladder under direct vision. Once within the bladder cystoscopy performed and a few of the stones were easily evacuated via the scope. At this point the laser fiber was inserted and the level of the verumontanum was marked on the lateral lobes as the distal extent of resection. Then in the sulci left and right of the median lobe of the prostate floor flow channels were fashion using the laser. This went from the bladder neck to the level of the verumontanum. These were extended to approximate the surgical capsule. The median lobe was then undermined and vaporized sequentially till it was eliminated. Attention was then turned to the lateral lobes which were vaporized down to the surgical capsule and wide open prostate from the bladder neck to the verumontanum. A strip of normal tissue was left from the 1 to 11 o'clock position as there were no obstructing tissue there. With the prostatic fossa apparently now widely patent and open the bladder was filled and the scope was removed and a vigorous stream was observed. A 25 Italian cystoscope was then passed through the urethra prostate into the bladder under direct vision and the stones were evacuated. As it turns out with a 25 Italian scope men of the stones required crushing. The evacuation was continued until there were no stones present. At this point there was on the right and left small nodule of tissue that became as evident the laser resectoscope was once again reinserted and laser energy applied to these till they were abated. The patient received again total laser time of 19 minutes 12 seconds and total laser energy [id number] joules. There were no complications the patient tolerated the procedure well and the 24 Italian 5 cc Peralta catheter was passed through the urethra and into the bladder without difficulty after the scope was removed. The balloon was filled 14 cc of sterile water and the catheter was placed to gravity drainage the patient was awakened to be transferred to the postanesthesia care unit for recovery Complications: none Post-operative Condition: stable Disposition: PACU Plan for aftercare: Patient will be discharged to home to follow up my office in the morning for catheter removal and then in approximately 10-14 days for follow-up from the procedure. The stones will be sent for compositional analysis.
[2022-11-15 14:21] VITALS: BP 163/65; PULSE 63; RESP 10; TEMP 36.3; O2SAT 96
[2022-11-15 14:26] VITALS: BP 127/87; PULSE 65; RESP 16; O2SAT 99
[2022-11-15 14:31] VITALS: BP 98/55; PULSE 64; RESP 14; O2SAT 95
[2022-11-15 14:36] VITALS: PULSE 63; RESP 12; O2SAT 94
[2022-11-15 14:40] VITALS: BP 154/83; PULSE 58; RESP 14; TEMP 36.4; O2SAT 95
[2022-11-18 15:22] LABS: Size 8x8 mm (.); Uric Acid 100 % (.)
== END 2022-11-15 15:13 | disposition home or self-care (01) ==
PROVIDERS: PCP Family Medicine; Referring Provider Urology; Visit Provider Urology
PROC: (CPT 52648; principal; 2022-11-15 12:45)
PROC: 0TCB8ZZ Extirpation of Matter from Bladder, Via Natural or Artificial Opening Endoscopic (ICD-10-PCS; CPT 52317; 2022-11-15 12:45)
DX: N40.1 Benign prostatic hyperplasia with lower urinary tract symptoms (principal); N32.0 Bladder-neck obstruction; N21.0 Calculus in bladder; Z87.440 Personal history of urinary (tract) infections
CPT/HCPCS: 52317; 52649; 82365; J0330; J0744; J2405; J2704; J3010

== ENCOUNTER → 2022-12-21 15:06 | Outpatient (CLI) | payer MEDICARE, SELFPAY | PROVIDERS: PCP Family Medicine; Visit Provider Urology | DX: N39.0 Urinary tract infection, site not specified (principal); N40.1 Benign prostatic hyperplasia with lower urinary tract symptoms; R39.14 Feeling of incomplete bladder emptying; R31.0 Gross hematuria; N21.0 Calculus in bladder | CPT/HCPCS: 51798; 81002; 87086 ==

== ENCOUNTER → 2023-09-13 07:49 | Outpatient (CLI) | payer MEDICARE, SELFPAY ==
[2023-09-13 08:34] LABS: Add Manual Diff / Slide Review NO; Basophils Absolute Auto 0 /uL (0-100); Basophils Percent Auto 0.5 % (0-2); Eosinophils Absolute Auto 100 /uL (0-450); Eosinophils Percent Auto 1.7 % (2-4); Hematocrit 43.6 % (41-53); Hemoglobin 15.1 g/dL (13.5-17.5); Lymphocytes Absolute Auto 1300 /uL (1100-4500); Lymphocytes Percent Auto 22.6 % (25-40); Mean Corpuscular HGB Conc 34.7 % (30-36); Mean Corpuscular Volume 86.7 fL (80-100); Monocytes Absolute Auto 500 /uL (0-900); Monocytes Percent Auto 8.2 % (3-14); Neutrophils Absolute Auto 3800 /uL (1500-7000); Platelet Count 236 X10^3/uL (150-400); Red Blood Cell Count 5.03 X10^6/uL (4.5-5.9); Red Cell Distribution Width 12.9 % (11.6-14.8); White Blood Cell Count 5.7 X10^3/uL (4.5-11.0)
[2023-09-13 09:01] LABS: Alanine Aminotransferase 54 IU/L (<50); Albumin 4.3 g/dL (3.5-5.0); Albumin Globulin Ratio 1.7 (1.0-2.8); Alkaline Phosphatase 44 U/L (38-126); Aspartate Aminotransferase 37 IU/L (17-59); BUN Creatinine Ratio 20.3 (6-22); Bilirubin Total 0.8 mg/dL (0.2-1.3); Blood Urea Nitrogen 16 mg/dL (9-20); Calcium 9.4 mg/dL (8.4-10.2); Carbon Dioxide 30 mmol/L (22-32); Chloride 99 mmol/L (98-107); Estimated Glomerular Filt Rate > 60 mL/min (>60); Globulin 2.6 g/dL (1.7-4.1); Glucose 97 mg/dL (80-110); HEMOLYSIS < 15 (0-50); Sodium 136 mmol/L (137-145); Total Protein 6.9 g/dL (6.3-8.2)
== END ==
PROVIDERS: PCP Family Medicine; Referring Provider Family Medicine; Visit Provider Family Medicine
DX: I10 Essential (primary) hypertension (principal)
CPT/HCPCS: 36415; 80053; 85025

== ENCOUNTER → 2023-10-13 07:32 | Outpatient (CLI) | payer MEDICARE, SELFPAY ==
[2023-10-13 08:52] LABS: Cholesterol 122 mg/dL (140-199); HDL Cholesterol 42 mg/dL (40-60); LDL Cholesterol Calculated 63 mg/dL (<100); Triglycerides 87 mg/dL (35-150)
[2023-10-13 09:18] LABS: TSH w/ Reflex to FT4 2.12 uIU/mL (0.47-4.68)
[2023-10-13 09:19] LABS: Prostate Specific Antigen 1.18 ng/mL (0.10-4.00)
[2023-10-14 07:54] LABS: Apolipoprotein B 65 mg/dL (<90)
[2023-10-17 03:09] LABS: Lipoprotein (a) 35.3 nmol/L (<75.0)
== END ==
LOC: LAB 07:33
PROVIDERS: PCP Family Medicine; Referring Provider Family Medicine; Visit Provider Family Medicine
DX: E78.2 Mixed hyperlipidemia (principal); N40.1 Benign prostatic hyperplasia with lower urinary tract symptoms; R39.14 Feeling of incomplete bladder emptying; N41.0 Acute prostatitis; K31.84 Gastroparesis; R31.0 Gross hematuria; R39.9 Unspecified symptoms and signs involving the genitourinary system; N21.0 Calculus in bladder
CPT/HCPCS: 36415; 80061; 82172; 83695; 84153; 84443

== ENCOUNTER → 2024-02-26 06:50 | Outpatient (CLI) | payer MEDICARE, SELFPAY ==
[2024-02-26 07:53] LABS: Add Manual Diff / Slide Review NO; Basophils Absolute Auto 0 /uL (0-100); Basophils Percent Auto 0.5 % (0-2); Eosinophils Absolute Auto 100 /uL (0-450); Eosinophils Percent Auto 1.8 % (2-4); Hematocrit 43.2 % (41-53); Hemoglobin 14.7 g/dL (13.5-17.5); Lymphocytes Absolute Auto 1300 /uL (1100-4500); Lymphocytes Percent Auto 21.4 % (25-40); Mean Corpuscular HGB Conc 34.1 % (30-36); Mean Corpuscular Hemoglobin 29.9 PG (26-34); Mean Corpuscular Volume 87.7 fL (80-100); Monocytes Absolute Auto 400 /uL (0-900); Monocytes Percent Auto 7.3 % (3-14); Neutrophils Absolute Auto 4200 /uL (1500-7000); Platelet Count 239 X10^3/uL (150-400); Red Blood Cell Count 4.93 X10^6/uL (4.5-5.9); Red Cell Distribution Width 13.2 % (11.6-14.8); White Blood Cell Count 6.1 X10^3/uL (4.5-11.0)
[2024-02-26 08:38] LABS: Alanine Aminotransferase 39 IU/L (<50); Albumin 4.4 g/dL (3.5-5.0); Albumin Globulin Ratio 2.1 (1.0-2.8); Alkaline Phosphatase 47 U/L (38-126); Aspartate Aminotransferase 37 IU/L (17-59); BUN Creatinine Ratio 20.7 (6-22); Bilirubin Total 0.6 mg/dL (0.2-1.3); Blood Urea Nitrogen 17 mg/dL (9-20); Calcium 8.7 mg/dL (8.4-10.2); Carbon Dioxide 28 mmol/L (22-32); Chloride 107 mmol/L (98-107); Estimated Glomerular Filt Rate > 60 mL/min (>60); Globulin 2.1 g/dL (1.7-4.1); Glucose 116 mg/dL (80-110); HEMOLYSIS < 15 (0-50); Potassium 4.6 mmol/L (3.4-5.1); Sodium 138 mmol/L (137-145); Total Protein 6.5 g/dL (6.3-8.2)
== END ==
PROVIDERS: PCP Family Medicine; Referring Provider Family Medicine; Visit Provider Family Medicine
DX: I10 Essential (primary) hypertension (principal)
CPT/HCPCS: 36415; 80053; 85025

== ENCOUNTER → 2024-11-05 07:00 | Outpatient (CLI) | payer MEDICARE, SELFPAY ==
[2024-11-05 07:44] LABS: Add Manual Diff / Slide Review NO; Basophils Absolute Auto 0 /uL (0-100); Basophils Percent Auto 0.5 % (0-2); Eosinophils Absolute Auto 100 /uL (0-450); Eosinophils Percent Auto 2.3 % (2-4); Hematocrit 43.2 % (41-53); Hemoglobin 14.8 g/dL (13.5-17.5); Lymphocytes Absolute Auto 1200 /uL (1100-4500); Lymphocytes Percent Auto 25.6 % (25-40); Mean Corpuscular HGB Conc 34.2 % (30-36); Mean Corpuscular Hemoglobin 30.4 PG (26-34); Mean Corpuscular Volume 88.7 fL (80-100); Monocytes Absolute Auto 400 /uL (0-900); Monocytes Percent Auto 8.6 % (3-14); Neutrophils Absolute Auto 3100 /uL (1500-7000); Platelet Count 247 X10^3/uL (150-400); Red Blood Cell Count 4.87 X10^6/uL (4.5-5.9); Red Cell Distribution Width 13.1 % (11.6-14.8); White Blood Cell Count 4.8 X10^3/uL (4.5-11.0)
[2024-11-05 08:26] LABS: Alanine Aminotransferase 41 IU/L (<50); Albumin 4.5 g/dL (3.5-5.0); Alkaline Phosphatase 40 U/L (38-126); Aspartate Aminotransferase 39 IU/L (17-59); BUN Creatinine Ratio 21.7 (6-22); Bilirubin Total 0.5 mg/dL (0.2-1.3); Blood Urea Nitrogen 20 mg/dL (9-20); Calcium 9.5 mg/dL (8.4-10.2); Carbon Dioxide 30 mmol/L (22-32); Chloride 102 mmol/L (98-107); Cholesterol 120 mg/dL (140-199); Estimated Glomerular Filt Rate > 60 mL/min (>60); Globulin 2.2 g/dL (1.7-4.1); Glucose 106 mg/dL (80-110); HDL Cholesterol 36 mg/dL (40-60); HEMOLYSIS < 15 (0-50); LDL Cholesterol Calculated 66 mg/dL (<100); Potassium 4.3 mmol/L (3.4-5.1); Sodium 138 mmol/L (137-145); Total Protein 6.7 g/dL (6.3-8.2); Triglycerides 91 mg/dL (35-150)
[2024-11-05 08:49] LABS: Creatinine Urine Random 147.63 mg/dL
[2024-11-05 08:55] LABS: Microalbumin Urine Random 1.3 mg/dL (0-1.6)
[2024-11-05 08:55] LABS: TSH w/ Reflex to FT4 2.17 uIU/mL (0.47-4.68)
[2024-11-05 08:56] LABS: Prostate Specific Antigen Scrn 0.963 ng/mL (0.1-4.0)
[2024-11-06 03:36] LABS: Apolipoprotein B 70 mg/dL (<90)
== END ==
PROVIDERS: PCP Family Medicine; Referring Provider Family Medicine; Visit Provider Family Medicine
DX: E78.5 Hyperlipidemia, unspecified (principal); Z12.5 Encounter for screening for malignant neoplasm of prostate; N40.0 Benign prostatic hyperplasia without lower urinary tract symptoms; I10 Essential (primary) hypertension
CPT/HCPCS: 36415; 80053; 80061; 82043; 82172; 82570; 84443; 85025; G0103

== ENCOUNTER → 2025-08-05 07:14 | Outpatient (CLI) | payer MEDICARE, SELFPAY ==
[2025-08-05 07:42] LABS: Estimated Glomerular Filt Rate > 60 mL/min (>60)
== END ==
PROVIDERS: PCP Family Medicine; Referring Provider Family Medicine; Visit Provider Family Medicine
DX: R59.0 Localized enlarged lymph nodes (principal)
CPT/HCPCS: 36415; 82565

== ENCOUNTER → 2025-08-06 08:02 | Outpatient (CLI) | payer MEDICARE, SELFPAY ==
--- NOTE | 2025-08-06 08:04 | DI.CT.S_ITS ---
PROCEDURE: CT SOFT TISSUE NECK W CON
== END ==
PROVIDERS: PCP Family Medicine; Referring Provider Family Medicine; Visit Provider Family Medicine
DX: K21.9 Gastro-esophageal reflux disease without esophagitis (principal); R59.0 Localized enlarged lymph nodes; R05.3 Chronic cough
CPT/HCPCS: 70491; Q9967

== ENCOUNTER → 2025-08-18 12:51 | Outpatient (CLI) | payer MEDICARE, SELFPAY ==
--- NOTE | 2025-08-18 12:52 | DI.CT.S_ITS ---
PROCEDURE: CT CHEST W CON INDICATIONS: enlarged lymph node of the chest on neck CT TECHNIQUE: After the administration of intravenous contrast, 5 mm thick sections acquired from the pulmonary apices to the posterior costophrenic angles. 1 mm axial lung, 5 mm thick coronal and sagittal reformats and 7 mm axial MIP were acquired. For radiation dose reduction, the following was used: automated exposure control, adjustment of mA and/or kV according to patient size. COMPARISON: [facility], CT, CT SOFT TISSUE NECK W CON, 08/06/2025, 8:19. FINDINGS: Quality: Diagnostic. Lungs: Parenchyma: No nodules. No consolidation. Airways: Patent. Pleura: No pneumothorax. No pleural effusion. Fat containing posterior diaphragmatic hernia in the right lower lobe approximately 4.1 cm in greatest dimension with adjacent compressive atelectasis or scarring. Mediastinum: Thyroid: Unremarkable. Esophagus: Unremarkable. Heart: Normal size. Moderate coronary calcification. Vasculature: No aortic aneurysm. Scattered calcified atherosclerotic plaque. Lymphatic: Pretracheal 2R lymph node with abnormal rounded morphology measuring 1.0 cm in short axis. No additional suspicious lymph nodes. Chest wall: Unremarkable. Upper abdomen: Unremarkable. Bones: No aggressive osseous lesion. Degenerative changes of the cervical and thoracic spine. IMPRESSION: Borderline abnormal pretracheal lymph node. No additional abnormal lymph nodes or mass. Moderate coronary calcification. Dictated by: Fuentes Wilson M.D. on 08/18/2025 at 17:16 Approved by: Fuentes Wilson M.D. on 08/18/2025 at 17:24
== END ==
LOC: CT 12:52
PROVIDERS: PCP Family Medicine; Referring Provider Family Medicine; Visit Provider Family Medicine
DX: R59.9 Enlarged lymph nodes, unspecified (principal); K44.9 Diaphragmatic hernia without obstruction or gangrene; I25.10 Atherosclerotic heart disease of native coronary artery without angina pectoris
CPT/HCPCS: 71260; Q9967

== ENCOUNTER 2025-08-28 12:41 | Day surgery (SDC) | payer MEDICARE, SELFPAY ==
[2025-08-20 12:36] VITALS: BMI 35.0
--- NOTE | 2025-08-28 | PATH_ITS ---
[facility] Accession Number: [id number] No. of containers..03 Tissue . 01 Material submitted: . PART A: duodenum - DUODENAL PART B: stomach - ANTRAL PART C: esophagus - ESOPHAGEAL . 01 Diagnosis: A. DUODENUM, BIOPSY: Gastric heterotopia. Negative for active inflammation, features of sprue, dysplasia, or malignancy. . B. GASTRIC ANTRUM, BIOPSY: Gastric antral mucosa with no diagnostic abnormality. No evidence of Helicobacter organisms on H/E stain. Negative for intestinal metaplasia. Negative for dysplasia or malignancy. . C. ESOPHAGUS, BIOPSY: Squamocolumnar junctional mucosa with no diagnostic abnormality. Negative for intestinal metaplasia. Negative for dysplasia and malignancy. . MRV 09/02/2025 1533 Local . 01 Electronically signed: . Adiel Vance MD, PhD, Pathologist NPI- [id number] . 01 Gross description: . A. Received in formalin with two identifiers and duodenal biopsy are two andrew soft tissue fragments, 0.3-0.4 cm in greatest dimension, submitted entirely in A1. B. Received in formalin with two identifiers and antral biopsy is a single andrew soft tissue fragment, 0.4 cm in greatest dimension, submitted entirely in B1. C. Received in formalin with two identifiers and esophageal biopsy are four andrew soft tissue fragments, 0.3-0.4 cm in greatest dimension, submitted entirely in C1. ([id number]) /MRV 08/29/2025 1713 Local . 01 Pathologist provided ICD-10: K31.7, K21.9 . 01 CPT . 914172, [id number], [id number] Specimen Comment: A courtesy copy of this report has been sent to [facility] Performed at: [address] [facility] [address] [address], [place], [place] [id number] MD Adonis Chiu MD Phone: [phone]
--- NOTE | 2025-08-28 06:39 | PM.PREOP ---
Pre-operative Note Interval Note History & Physical reviewed/Exam performed by Physician: Yes Changes to H&P: No ASA Class (for procedural sedation): II
[2025-08-28 15:07] VITALS: BP 155/84; PULSE 75; RESP 16; TEMP 36.4; O2SAT 95
[2025-08-28] MEDS: LACTATED RINGERS 1,000 ML 42 ML IV (15:13)
--- NOTE | 2025-08-28 15:53 | PM.OP.EGD ---
Operative Date/Time/Diagnoses Date of procedure: 08/28/25 Time of procedure: 16:19 Pre-op diagnosis: GERD, cough, globus, hiatal hernia on imaging Post-op diagnosis: other (Patulous hiatus, no esophagitis, mild antral gastritis, duodenitis) Procedure & Clinicians Study performed: EGD with biopsy Same procedure(s) as scheduled: Yes Indications: 74yo M with h/o GERD, cough, globus, hiatal hernia on imaging Surgeon: Neville Saab Anesthesia Type: MAC +/- Procedure Notes SCOAP/Timeout: Performed Procedure in detail: EGD Informed consent was obtained. The procedure, its risks, benefits, and alternatives were discussed. Patient understood and agreed to proceed. The patient was placed in the left lateral decubitus position with head elevated. Sedation given per anesthesia. The video endoscope was inserted into the oropharynx and guided under direct vision into the esophagus, stomach, and duodenum which were carefully examined. The scope was retroflexed to examine the hiatus and gastroesophageal junction. Antral biopsies were obtained for Helicobacter pylori. The patient tolerated the procedure very well. There were no apparent complications. Significant EGD findings: Z-line noted at: 39cm Patulous hiatus, no large hiatal hernia No esophagitis, random biopsies taken Mild antral gastritis, erytematous streaks, biopsies taken Duodenitis, appearance of nodular gastric heterotopia, biopsies taken No ulcer in duodenum, stomach or esophagus Findings: gastritis Specimen(s): other (biopsies) Estimated Blood Loss: 5 Complications: none Impression: Patulous hiatus Post-procedure Recommendations: Will call with biopsy results Plan for aftercare: PACU then home Follow up: as needed Disposition: PACU
[2025-08-28 16:16] VITALS: BP 142/67; PULSE 69; RESP 16; TEMP 36.7; O2SAT 96
[2025-08-28 16:22] VITALS: BP 142/66; PULSE 67; RESP 16; O2SAT 96
[2025-08-28 16:23] VITALS: BP 134/72; PULSE 71; RESP 16; O2SAT 98
== END 2025-08-28 16:45 | disposition home or self-care (01) ==
PROVIDERS: PCP Family Medicine; Referring Provider Surgery; Visit Provider Surgery
PROC: 0DJ08ZZ Inspection of Upper Intestinal Tract, Via Natural or Artificial Opening Endoscopic (ICD-10-PCS; CPT 43239; principal; 2025-08-28 14:30)
DX: K21.9 Gastro-esophageal reflux disease without esophagitis (principal); R05.9 Cough, unspecified; Z87.891 Personal history of nicotine dependence; F45.8 Other somatoform disorders; K29.70 Gastritis, unspecified, without bleeding; K29.80 Duodenitis without bleeding; Q40.2 Other specified congenital malformations of stomach
CPT/HCPCS: 43239; J2704; J7120